=== PATIENT | male | born 1945 | race Caucasian/White ===

== ENCOUNTER → 2023-12-02 12:30 | Outpatient (REF) | payer MEDICARE, OTHER, SELFPAY | LOC: DHCBC HW 12:30 | PROVIDERS: ATTENDING PHYSICIAN Internal Medicine Cardiovascular Disease; FAMILY PHYSICIAN Family Medicine | DX: R06.02 Shortness of breath (principal) | CPT/HCPCS: 93306 ==

== ENCOUNTER → 2024-01-03 08:02 | Outpatient (REF) | payer MEDICARE, OTHER, SELFPAY | LOC: DHCBC/DCA 08:02 | PROVIDERS: ATTENDING PHYSICIAN Internal Medicine Cardiovascular Disease; FAMILY PHYSICIAN Family Medicine | DX: R06.02 Shortness of breath (principal) | CPT/HCPCS: 78452; 93017; A9500; J2785 ==

== ENCOUNTER → 2024-05-24 09:43 | Outpatient (REF) | payer MEDICARE, OTHER, SELFPAY | LOC: DHVS 09:43 | PROVIDERS: ATTENDING PHYSICIAN Surgery Vascular Surgery; FAMILY PHYSICIAN Family Medicine; REFERRING PHYSICIAN Internal Medicine Cardiovascular Disease | DX: I73.9 Peripheral vascular disease, unspecified (principal) | CPT/HCPCS: 93922; 93925 ==

== ENCOUNTER → 2024-09-10 13:29 | Outpatient (REF) | payer MEDICARE, OTHER, SELFPAY | LOC: RAD 13:29 | PROVIDERS: ATTENDING PHYSICIAN Student in an Organized Health Care Education/Training Program; FAMILY PHYSICIAN Family Medicine | DX: G45.9 Transient cerebral ischemic attack, unspecified (principal); I25.10 Atherosclerotic heart disease of native coronary artery without angina pectoris | CPT/HCPCS: 93880 ==

== ENCOUNTER → 2024-11-09 11:49 | Outpatient (REF) | payer MEDICARE, OTHER, SELFPAY | LOC: RAD 11:49 | PROVIDERS: ATTENDING PHYSICIAN Physician Assistant; FAMILY PHYSICIAN Family Medicine | DX: I65.22 Occlusion and stenosis of left carotid artery (principal) | CPT/HCPCS: 70496; 70498; Q9967 ==

== ENCOUNTER 2024-12-03 06:25 | Inpatient (IN) | payer MEDICARE, OTHER, SELFPAY ==
[2024-11-28 09:04] VITALS: BMI 22.1
[2024-11-28 09:33] LABS: % Basophils 0.5 % (0-2); % Eosinophils 3.9 % (0-6); % Immature Granulocytes 2.3 % (0-0.5); % Lymphocytes 12.9 % (20.5-51.1); % Monocytes 10.3 % (1.7-9.3); % Neutrophils 70.1 % (42.2-75.2); Absolute Eosinophils 0.2 10^3/uL (0-0.7); Absolute Immature Granulocytes 0.1 10^3/uL (0-0.05); Absolute Lymphocytes 0.8 10^3/uL (1.2-3.4); Absolute Monocytes 0.6 10^3/uL (0.1-0.6); Absolute Neutrophils 4.3 10^3/uL (1.4-6.5); Hematocrit 43.9 % (39.0-52.0); Hemoglobin 14.1 g/dL (13.0-18.0); Mean Corp Hgb Conc. 32.1 g/dL (33.0-37.0); Mean Corpuscular Hgb 29.7 pg (27.0-31.0); Mean Corpuscular Volume 92.6 fL (80.0-94.0); Mean Platelet Volume 8.8 fL (7.4-10.4); Nucleated Red Blood Cells % 0 % (-); Platelet Count 204 10^3/uL (130-400); Red Blood Cell Count 4.74 10^6/uL (4.70-6.10); Red Cell Dist. Width 13.3 % (11.5-14.5); White Blood Cell Count 6.2 10^3/uL (4.8-10.8)
[2024-11-28 09:46] LABS: APTT 31.3 Sec (23.4-35.0); INR 0.92; PT 12.8 Sec (11.4-14.6)
[2024-11-28 10:12] LABS: Blood Urea Nitrogen 32 mg/dl (9-20); Calcium 9.4 mg/dl (8.4-10.2); Carbon Dioxide 28 mmol/L (22-30); Chloride 101 mmol/L (98-107); Estimated Creatinine Clearance 44 ml/min; Glucose 98 mg/dl (70-99); Sodium 140 mmol/L (135-145); eGFR > 60.00
[2024-12-03] VITALS (15 sets, daily range): BP systolic 126–174; BP diastolic 48–71; BMI 21.8; BMI 22.1
[2024-12-03] MEDS: PERIDEX 0.12% ORAL RINSE 15 ML PO (07:08)
[2024-12-03] MEDS: BACTROBAN NASAL 1 GRAM NASAL (07:08)
[2024-12-03] MEDS: NSS 500 IV (07:09)
--- NOTE | 2024-12-03 07:10 | W.SUR.PREOP ---
Pre-Operative Surgical Note
-
I have examined this patient prior to the performance of the scheduled procedure.
The patient's condition is unchanged from the time of the current History and
Physical and the patient is able to undergo the scheduled procedure.
--- NOTE | 2024-12-03 09:27 | W.SUR.POST ---
Surgical Immediate Post Op
Note
Pre Op Diagnosis: Carotid stenosis
Post Op Diagnosis: Same
Procedure Performed: Left carotid endarterectomy with bovine pericardial patch angioplasty and EEG monitoring
Primary Surgeon: Savage
Assist: Thi BARBOZA
Anesthesia: General
Estimated Blood Loss: 15 cc
Fluids: See anesthesia flowsheet
Drains/Shunts: None
Specimens/Cultures: Left carotid plaque
Doppler/Duplex/Angio (Y/N): Yes
Complications: None
Operative Findings: Woke from anesthesia moving all extremities
--- NOTE | 2024-12-03 09:43 | OR.RPT ---
Operative Report
Operative Report
PROCEDURE DATE: 12/03/2024
Preoperative diagnosis: Critical left carotid artery stenosis, asymptomatic.
Postoperative diagnosis: Same
Procedure: Left carotid endarterectomy with bovine pericardial patch angioplasty and intraoperative EEG/SSEP monitoring.
Surgeon: Savage
Bevel Mill Operator: MARCIN Ness, required for all aspects of procedure including assistance with traction/countertraction, following of suture line, assistance with closure.
Complications: None
Anesthesia: General
Indications for procedure:
Severe left carotid artery stenosis. History of remote right carotid endarterectomy. Mixed, somewhat concerning appearing plaque. Risk/benefits/alternatives of revascularization were fully discussed. Patient understood all wished to proceed.
Description of procedure:
Patient was identified brought to the operating room placed on the table in supine position. After the adequate administration of anesthesia and perioperative antibiotics the was prepped and draped in the standard surgical fashion. A standard
preoperative timeout was undertaken and everybody was in agreement the plan. A standard longitudinal incision was made in the left neck that was carried through the skin subcutaneous tissue. Note, the incision was intentionally made slightly more
generously given finding on CT scan of extensive common carotid artery plaque and disease suggesting that proximal endpoint would have to be more proximal. Using the electrocautery dissection was carried through the platysma muscle layer and then
alongside the anterior medial border of the sternocleidomastoid muscle. Then using a combination of sharp dissection with the Metzenbaum scissors and electrocautery I dissected along the anterior medial border of the internal jugular vein. The
common facial vein branch was ligated between silk ties and then divided. I then deepened my retraction. The common carotid artery was identified and carefully dissected away from the surrounding structures take great care to avoid any injury to
the structures. There was definitively plaque in the common carotid artery. I dissected it down below using a retractor to get fairly low close to the base of the neck. There was plaque throughout but the plaque became much less prominent and
only mainly on the lateral wall. Therefore it was collapsible down the lower and I circumferentially dissected here. A vessel loop was passed around it which was double looped, but not yet tightened. Note the vagus nerve was clearly visualized
and protected from harm's way. I then continued my dissection up the common carotid artery to the bulb staying only on the anterior surface of the carotid artery. Then I carried the dissection up to the internal carotid artery and then to the
distal internal carotid artery. I identified where it was soft and carefully circumferentially dissected the internal carotid artery with minimal mobilization and passed a vessel loop around it. Note the hypoglossal nerve was not visualized in our
field and felt to be further cephalad. The patient was given an appropriate dose of heparin 6500 units. Next I dissected the anterior surface of the external carotid artery and superior thyroid branches. The superior thyroid branch itself was far
enough cephalad that I was able to dissect circumferentially the external carotid artery proximal to the origin of this branch and passed a vessel loop around the external carotid artery. This vessel loop was double looped but not yet tightened.
After 3 minutes of heparin circulation time and confirmation of optimization of the blood pressure with my anesthesiology colleagues, I clamped the distal internal carotid artery where it was soft. There was no immediate EEG or SSEP changes. After
1 minute of test clamp time there was no changes noted. Therefore at this point, the vessel loop on the external carotid artery was tightened and the common carotid artery was clamped where it was soft well proximally. An arteriotomy was made on
the internal carotid artery about 1cm beyond the origin (where it was soft) with an 11 blade and extended using a Del Angel scissor retrograde onto the common carotid artery. Due to the extent of common carotid artery plaque, I did extend the
arteriotomy well proximal on the common carotid artery at least a length of about 5 cm to 6 cm.. The plaque was mixed with some hardened calcification or exteriorly, but the central portion of the the plaque especially at the bulb/proximal internal
carotid artery was friable/soft as noted on CT scan. A [place] was then used to endarterectomized the plaque. An endarterectomy plane was created, and the plaque was then endarterectomized. Distally I feathered the plaque out to a nice clean
endpoint in the distal internal carotid artery. Next I endarterectomized the intima back all the way to the extent of the proximal arteriotomy on the common carotid artery. There was a little residual intimal thickening there, but I was able to
cut the intima flush. Slightly friable plaque debris was removed at the proximal endpoint using fine forceps meticulously. I then grasped the plaque and everted plaque out of the origin of the external carotid artery. The plaque was then sent off
for specimen. The origin of the external carotid artery was noted to be nicely free of any plaque debris. Proximal and distal endpoints were then carefully inspected. Any fine debris was removed with fine forceps, and the intima was noted to be
nicely adherent proximally and distally. Due to slight residual thickening or plaque in the proximal endpoint, I placed three 6-0 Prolene tacking sutures. Next any fine debris were removed throughout the endarterectomy bed with fine forceps. I
then flushed heparinized saline. I was very satisfied. Then, I used a bovine pericardial patch to sew a patch angioplasty with a running 5-0 Prolene suture. Prior to completing and tying down my suture line, I backbled sequentially each branch
and reclamped each branch prior to unclamping the next branch. I then irrigated with heparinized saline. Then I completed and tied down my suture line. We then restored flow in the common carotid and external carotid arteries. Finally, we
released flow in the internal carotid artery. There was excellent pulsatile flow in all 3 vessels. There was an excellent Doppler signal in the internal carotid artery distal to the patch with a good normal low resistance Doppler signal. There
was a good Doppler signal in the external carotid artery as well. A single 6-0 Prolene [id number] sutures were placed along any bleeding points along the suture line. Protamine was given to reverse the heparin. Hemostasis was completely
achieved. We then irrigated and confirmed full hemostasis. We then closed in layers with 2-0 Vicryl layer to reapproximate the sternocleidomastoid muscle, followed by 3-0 Vicryl platysma muscle running layer, followed by 4 Monocryl subcuticular
stitch. Dermabond was applied. The patient tolerated procedure well. He awoke moving all extremities to command with tongue in the midline.
[2024-12-03] MEDS: CARDENE 200 IV (10:19)
[2024-12-03 10:23] LABS: Hematocrit 35.8 % (39.0-52.0); Hemoglobin 11.8 g/dL (13.0-18.0); INR 1.07; Mean Corpuscular Hgb 30.6 pg (27.0-31.0); Mean Platelet Volume 9.1 fL (7.4-10.4); PT 14.2 Sec (11.4-14.6); Platelet Count 151 10^3/uL (130-400); Red Blood Cell Count 3.85 10^6/uL (4.70-6.10); Red Cell Dist. Width 13.3 % (11.5-14.5)
[2024-12-03 10:24] LABS: APTT 31.6 Sec (23.4-35.0)
[2024-12-03 10:32] LABS: Blood Urea Nitrogen 26 mg/dl (9-20); Calcium 7.7 mg/dl (8.4-10.2); Carbon Dioxide 23 mmol/L (22-30); Chloride 111 mmol/L (98-107); Estimated Creatinine Clearance 53 ml/min; Glucose 107 mg/dl (70-99); Potassium 3.9 mmol/L (3.5-5.1); Sodium 139 mmol/L (135-145); eGFR > 60.00
[2024-12-03] MEDS: NSS 1000 IV ×2 (11:16→23:43)
[2024-12-03] MEDS: ROXICODONE 5 MG PO ×2 (11:31→16:30)
--- NOTE | 2024-12-03 11:52 | PTCARENOTE ---
Rec'd patient from PACU. Patient alert and oriented. Neuro check WNL. MAEx4. Smile symmetrical; tongue midline. Left neck incision site intact; approximated with surgical adhesive. NSR on tele. Right radial chel leveled and zeroed. Cardene infusing
for SBP 100-165. IVFs initiated. Call ross within reach.
--- NOTE | 2024-12-03 12:53 | PTCARENOTE ---
Patient tolerating liquids. Diet advanced to cholesterol lowering diet per order.
--- NOTE | 2024-12-03 13:47 | CON.INTV ---
Consultation
Consultation Request
Date/Time Consultation Requested: 12/03/24
Date/Time Consultation Performed: 12/03/24
Performing Provider: Octavio
Reason for Consultation: ICU
Medical History
-
History of Present Illness:
Patient is an 79-year-old male with history of COPD, current smoker, PAD, CAD presenting for elective carotid intervention. He has history of bilateral carotid disease, underwent previous right sided CEA. Underwent left-sided CEA today 12/03/2024
and postoperatively admitted to ICU for further observation. Tolerated procedure well without complications. Denies any current pain.
Past Medical History
Past Medical History: Other (see list below)
Social History
Tobacco: Smoker
Alcohol: None
Drug: None
Family History
Family History: Reviewed & Not Pertinent
Allergies / Home Medications
Allergies
Allergy/AdvReac Type Severity Reaction Status Date / Time
lisinopril Allergy Unknown Unknown Verified 12/03/24 07:01
losartan Allergy Unknown Unknown Verified 12/03/24 07:01
spironolactone Allergy Unknown Unknown Verified 12/03/24 07:01
Tetanus Vaccines and Toxoid Allergy Local Verified 12/03/24 07:01
Swelling,
HTN
Anticoagulants Allergy 'Bleeding' Uncoded 12/03/24 07:01
Home Medications
�Medication �Instructions �Recorded �Confirmed �Last Taken �Type
acetaminophen 500 mg tablet 500 mg PO Q6H PRN pain 09/15/23 11/26/24 09/21/23 22:00 History
albuterol sulfate 90 mcg/actuation 2 puff inhalation PRN PRN SOB, 09/15/23 11/26/24 3 Months Ago History
aerosol inhaler Wheezes ~06/23/23
ascorbic acid (vitamin C) 1,000 mg 1 g PO QPM 09/15/23 12/03/24 12/02/24 06:00 History
tablet (Vitamin C)
aspirin 81 mg tablet,delayed 81 mg PO HS 09/15/23 12/03/24 12/02/24 06:00 History
release
calcium 600 mg (as 1 tab PO DAILY 09/15/23 12/03/24 12/02/24 20:00 History
carbonate)-vitamin D3 5 mcg (200
unit) tablet
carvedilol 12.5 mg tablet 12.5 mg PO BID 09/15/23 12/03/24 12/03/24 04:30 History
loratadine 10 mg tablet (Claritin) 10 mg PO QPM PRN allergy 09/15/23 11/26/24 09/21/23 22:00 History
lovastatin 40 mg tablet 40 mg PO BID 09/15/23 12/03/24 12/03/24 04:30 History
multivitamin 1 tab PO DAILY 09/15/23 12/03/24 12/02/24 06:00 History
omega 3-dzb-ysm-fish oil 1,000 mg 1 cap PO QPM 09/15/23 12/03/24 12/02/24 22:00 History
(120 mg-180 mg) capsule (Fish Oil)
hydrochlorothiazide 12.5 mg tablet 12.5 mg PO DAILY 11/26/24 12/03/24 12/02/24 06:00 History
umeclidinium 62.5 mcg-vilanterol 1 inh inhalation DAILY 11/26/24 11/26/24 Unknown History
25 mcg/actuation powdr for
inhalation (Anoro Ellipta)
Review of Systems
-
History Source: Patient
All other systems: Negative unless noted
Vitals / Labs / Diagnostic Testing
Vital Signs
Temp Pulse Resp BP Pulse Ox
97.5 F 76 17 126/57 94
12/03/24 11:23 12/03/24 13:30 12/03/24 13:30 12/03/24 11:00 12/03/24 13:15
Lab Data
12/03/24 10:02
12/03/24 10:02
Laboratory Results
12/03/24
10:02
PT 14.2
INR 1.07
APTT 31.6
Diagnostic Testing:
Physical Exam
-
HEENT: Normocephalic, Anicteric and Moist Mucous Membranes
Cardiovascular: S1/S2 and Regular Rhythm
Respiratory: Clear and Non-Labored Respirations
GI: Soft, Non Distended and Non Tender
Neurology: Awake, Alert, Oriented and No Motor Deficits
Skin: Warm, Dry and Good Color
General: Comfortable and Other (NAD)
Assessment
-
Patient is an 79-year-old male with history of COPD, current smoker, PAD, CAD presenting for elective carotid intervention. He has history of bilateral carotid disease, underwent previous right sided CEA. Underwent left-sided CEA today 12/03/2024
and postoperatively admitted to ICU for further observation.
Left carotid stenosis s/p L CEA 12/03/24
Post op anemia, mild
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
s/p Right CEA
HTN
Dyslipidemia
CAD
Cardiomyopathy
Hiatal hernia
PAD
H/o colon polyps
Prostate cancer 08/2020 s/p biopsy
DVT
2 hernia repairs
T&A
Aortoiliac stent 2004 @ [facility]
Current smoker
COPD/emphysema, followed at [facility], no PFTs for review
Plan
Patient is s/p L CEA by vascular surgery service, POD #0
Continue observation following procedure
Follow neurovascular checks per protocol
Follow BP monitoring and parameters as set by primary team
Cardiac history noted
Monitor on telemetry
Pain control per protocol
RASS goal 0
Prior history of pulmonary disease, includes COPD/emphysema
Followed previously by [facility], no PFTs for review
Current smoker, cut down to 1/4 PPD, has declined NRT
We discussed smoking cecssation
CXR reviewed indicating no acute disease
Encouraged IS
He feels his OP regiment is not enough, SOB now
Will add advair and spiriva, to continue as OP if this is preferred
Diet advancement per protocol
Aspiration precautions
GI prophylaxis if indicated for stress ulcer prevention in the critically ill
Creat at baseline, follow UO
Critical I/Os
Void trials
Replete electrolytes as needed
No signs/symptoms suspicious for infectious etiology at this time
Will observe off antibiotics for now
Follow temperatures/CBC
Hb and platelets postoperatively stable
DVT prophylaxis recommended if not contraindicated based on procedural history -- heparin SQ and mechanical SCDs
Encouraged OOB/PT/OT/ambulation once cleared by surgical team
Outpatient pulmonary FU recommended, we will add our info into chart
Can follow up at our office with PFTs, we will transfer records from [facility]
We will follow
Diagnostic Data
Chest X-Ray: 11/28/24- There is flattening of the diaphragm indicating chronic obstructive pulmonary disease. There are no superimposed acute pleural or parenchymal abnormalities.
CT Scan: AP 08/16/23- LUNGS BASES: Moderate size hiatal hernia. Emphysematous changes within the lung bases.
Echo: 12/02/23- Normal left ventricular chamber size with low-normal systolic function. Estimated left ventricular ejection fraction is 50-55% Mild to moderate tricuspid regurgitation. Mild mitral regurgitation. Pulmonary hypertension with estimated
PA pressure 50mmHg. Compared to the previous report 06/24/2020 the estimated PA pressure has increased. Previously estimated at 32 mmHg
PFT's:
Reports and relevant images were personally reviewed.
Critical Care time 50 mins -- this includes review of history, physical exam, medications, hemodynamic/O2 parameters, laboratory data, imaging and discussions with care team, pharmacy, nursing and patient.
--- NOTE | 2024-12-03 14:39 | PTCARENOTE ---
Cardene drip weaned off. VSS. Tolerated eating lunch. Dr. Wan at bedside.
--- NOTE | 2024-12-03 16:29 | PTCARENOTE ---
No changes in assessment. VSS. Pain controlled with PRN Roxicodone.
[2024-12-03] MEDS: VITAMIN C 500 MG PO (17:39)
[2024-12-03] MEDS: COREG 12.5 MG PO (19:01)
[2024-12-03] MEDS: TYLENOL 650 MG PO (19:07)
--- NOTE | 2024-12-03 21:20 | PTCARENOTE ---
Pt received start of shift, HR SR. AAOx4. Neuro WNL. Full strength in all extremities. Pupils round, reactive b/l. Smile symmetrical. L neck incision site intact, surgical adhesive present. R radial a-line zeroed. IVF infusing 80mL/hr as ordered.
PRN pain management - see DEC.
Pt refusing atorvastatin. Pt states he has adverse reactions to it such as facial flushing and increased BP, which is why he currently takes Lovastatin. Notified CLINIC SCHEDULER Cristino Reaves, atorvastatin placed on hold. When talking about plan to wean NC
oxygen and using inhalers to aid in the process, pt states he will refuse any inhaler. RT at bedside. Further education provided, pt continuing to refuse. Currently 1L NC 95%.
[2024-12-03] MEDS: ASPIR LOW (ENTERIC COATED) 81 MG PO (22:21)
[2024-12-04] VITALS (11 sets, daily range): BP systolic 117–180; BP diastolic 49–109; BMI 22.2
--- NOTE | 2024-12-04 00:37 | PTCARENOTE ---
Pt SBP up to 180 arterial, correlating w/ BP cuff. Cardene gtt started back on pt according to order. Neuro status unchanged from previous assessment. Pt voiding in urinal. L neck incision intact.
[2024-12-04 05:15] LABS: Blood Urea Nitrogen 22 mg/dl (9-20); Calcium 7.4 mg/dl (8.4-10.2); Carbon Dioxide 24 mmol/L (22-30); Chloride 109 mmol/L (98-107); Estimated Creatinine Clearance 60 ml/min; Glucose 127 mg/dl (70-99); Potassium 4.1 mmol/L (3.5-5.1); Sodium 137 mmol/L (135-145); eGFR > 60.00
[2024-12-04 05:19] LABS: APTT 32.3 Sec (23.4-35.0); INR 1.07; PT 14.2 Sec (11.4-14.6)
--- NOTE | 2024-12-04 05:55 | PTCARENOTE ---
Sergioene gtt off at 0300. Pt maintaining SBP goal range. Pt currently still on 1L NC, 92-96%. Neuro unchanged from previous assessment. Incision site intact. Reviewed plan of care w/ pt, pt agreeable.
[2024-12-04 06:14] LABS: Hematocrit 37.1 % (39.0-52.0); Hemoglobin 12.2 g/dL (13.0-18.0); Mean Corp Hgb Conc. 32.9 g/dL (33.0-37.0); Mean Corpuscular Hgb 30.4 pg (27.0-31.0); Mean Corpuscular Volume 92.5 fL (80.0-94.0); Mean Platelet Volume 9.2 fL (7.4-10.4); Platelet Count 182 10^3/uL (130-400); Red Blood Cell Count 4.01 10^6/uL (4.70-6.10); Red Cell Dist. Width 13.2 % (11.5-14.5); White Blood Cell Count 7.8 10^3/uL (4.8-10.8)
--- NOTE | 2024-12-04 07:15 | W.PN.INTV ---
Today's Communication / Plan
Recommendations
Doing well postoperatively, stable on RA
No complaints, tolerating inhalers
We will arrange FU as OP, reviewed plan
Discharge planning otherwise per team
Assessment
-
Patient is an 79-year-old male with history of COPD, current smoker, PAD, CAD presenting for elective carotid intervention. He has history of bilateral carotid disease, underwent previous right sided CEA. Underwent left-sided CEA today 12/03/2024
and postoperatively admitted to ICU for further observation.
Left carotid stenosis s/p L CEA 12/03/24
Post op anemia, mild
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
s/p Right CEA
HTN
Dyslipidemia
CAD
Cardiomyopathy
Hiatal hernia
PAD
H/o colon polyps
Prostate cancer 08/2020 s/p biopsy
DVT
2 hernia repairs
T&A
Aortoiliac stent 2004 @ [facility]
Current smoker
COPD/emphysema, followed at [facility], no PFTs for review
Plan
Patient is s/p L CEA by vascular surgery service, POD #1
Continue observation following procedure
Follow neurovascular checks per protocol
Follow BP monitoring and parameters as set by primary team
Cardiac history noted
Monitor on telemetry
Pain control per protocol
RASS goal 0
Prior history of pulmonary disease, includes COPD/emphysema
Followed previously by [facility], no PFTs for review
Current smoker, cut down to 1/4 PPD, has declined NRT
We discussed smoking cecssation
CXR reviewed indicating no acute disease
Encouraged IS
He feels his OP regiment is not enough, SOB now
Continue advair and spiriva, to continue as OP if this is preferred
Diet advancement per protocol
Aspiration precautions
GI prophylaxis if indicated for stress ulcer prevention in the critically ill
Creat at baseline, follow UO
Critical I/Os
Void trials
Replete electrolytes as needed
No signs/symptoms suspicious for infectious etiology at this time
Will observe off antibiotics for now
Follow temperatures/CBC
Hb and platelets postoperatively stable
DVT prophylaxis recommended if not contraindicated based on procedural history -- heparin SQ and mechanical SCDs
Encouraged OOB/PT/OT/ambulation once cleared by surgical team
Outpatient pulmonary FU recommended, we will add our info into chart
Can follow up at our office with PFTs, we will transfer records from [facility]
Discharge planning per team
Diagnostic Data
Chest X-Ray: 11/28/24- There is flattening of the diaphragm indicating chronic obstructive pulmonary disease. There are no superimposed acute pleural or parenchymal abnormalities.
CT Scan: AP 08/16/23- LUNGS BASES: Moderate size hiatal hernia. Emphysematous changes within the lung bases.
Echo: 12/02/23- Normal left ventricular chamber size with low-normal systolic function. Estimated left ventricular ejection fraction is 50-55% Mild to moderate tricuspid regurgitation. Mild mitral regurgitation. Pulmonary hypertension with estimated
PA pressure 50mmHg. Compared to the previous report 06/24/2020 the estimated PA pressure has increased. Previously estimated at 32 mmHg
PFT's:
Reports and relevant images were personally reviewed.
Critical Care time 31 mins -- this includes review of history, physical exam, medications, hemodynamic/O2 parameters, laboratory data, imaging and discussions with care team, pharmacy, nursing and patient.
Subjective Dataa
Subjective Data
Date of Service:
Date of Service: December 04, 2024
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
Subjective:
Doing well, no complaints
Stable on RA
Objective Data
Data Reviewed
Vital Signs / I&O / Oxygen:
Vital Signs
Temp Pulse Resp BP Pulse Ox
97.8 F 65 24 145/109 98
12/03/24 23:30 12/04/24 06:45 12/04/24 06:45 12/04/24 06:00 12/04/24 06:45
Intake and Output
12/03/24 12/04/24 12/05/24
06:59 06:59 06:59
Intake Total 2622.5 / 2622.5
Output Total 725 / 725
Balance 1897.5 / 1897.5
SaO2 98
Nasal Cannula flow liters per 1
minute
Physical Exam
General: Comfortable and Other (NAD)
HEENT: Normocephalic, Anicteric and Moist Mucous Membranes
Cardiovascular: S1-S2 and Regular Rhythm
Respiratory: Clear and Non-Labored Respirations
GI: Soft, Non Distended and Non Tender
Neurology: Awake, Alert, Oriented and No Motor Deficits
Skin: Warm, Dry and Good Color
Labs/Micro/Reports
Lab Data
12/04/24 04:25
12/04/24 04:25
Laboratory Results
12/03/24 12/04/24
10:02 04:25
PT 14.2 14.2
INR 1.07 1.07
APTT 31.6 32.3
--- NOTE | 2024-12-04 08:02 | W.PN.VS ---
Today's Communication / Plan
-
Seen and assessed with Dr. Mason
Assessment/Plan
-
POD 1 left CEA
Plan:
-DC A-line
-DC IV fluids
-P.o. medications
-Increase diet
-Out of bed/ambulate
-Likely DC later today
Subjective Data
-
Date of Service: December 04, 2024
Patient seen at bedside this a.m. Patient offers no complaints at this time. Patient excited to get out of bed and go home. No events overnight.
Objective Data
-
Vital Signs
Temp Pulse Resp BP Pulse Ox
98.0 F 65 24 145/109 88
12/04/24 07:37 12/04/24 06:45 12/04/24 06:45 12/04/24 06:00 12/04/24 07:37
Intake and Output
12/03/24 12/04/24 12/05/24
06:59 06:59 06:59
Intake Total 2622.5 / 2622.5
Output Total 725 / 725
Balance 1897.5 / 1897.5
Intake:
Oral fluids 960 / 960
IV fluids (Total) 1662.5 / 1662.5
Cardene 62.5 / 62.5
Nss 1,000 ml @ 80 mls/hr IV . 1600 / 1600
[id number] ADRIAN Rx#:[id number]
Output:
Urine, Voided 725 / 725
Lab Results
12/04/24 04:25
12/04/24 04:25
Calcium 7.4 mg/dl (8.4-10.2) L 12/04/24 04:25
Physical Exam
-
AAOx3
No tachypnea on room air
No tachycardia
Neck site clean, dry, intact, soft, flat
Abdomen soft
Moves all extremities equally
Tongue midline
[2024-12-04] MEDS: COREG 12.5 MG PO (08:34)
[2024-12-04] MEDS: THERAGRAN 1 TABLET PO (08:35)
[2024-12-04] MEDS: OSCAL 500 + D 600 MG PO (08:35)
[2024-12-04] MEDS: ORETIC 12.5 MG PO (08:35)
--- NOTE | 2024-12-04 09:15 | PTCARENOTE ---
Received pt @ change of shift. Neuro check completed w off-going shift WNL- see flow sheet. Ox3, denies pain. MAEx4. Smile symmetrical; tongue midline. Left neck incision site intact; approximated with surgical adhesive. O2 removed; SpO2 92%
currently; occasional desaturation into mid 80's, pox self resolves back into 90's w use of IS. Cough/deep breathing exercise encouraged. R rad A-line removed; pressure held until bleeding ceased and clean dressing applied. Stand by assisted into
BR for AM hygiene and then into chair. Tolerating activity; remains in chair. Also tolerating meals. Pt. instructed on how to report care concerns and call ross w in reach.
--- NOTE | 2024-12-04 10:26 | CM ---
CM following re: discharge planning.
Reviewed pt's chart, met with pt and pt's spouse at bedside.
Pt is an 79 year old male, admitted with primary dx of POD 1 left CEA. per Vascular Surgery, pt most likely will be discharged home this afternoon. Pt is aware, expressed his agreement and great desire to return back home today. IMM reviewed, placed
on chart, pt has a copy.
Pt reports he lives with spouse 2SH, 2 steps to enter, has 2 supportive children. 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 No VN or SNF history.
PCP: Joshua Hidalgo
Pharmacy: [facility].
D/C plan: Home no needs. Spouse to transport.
--- NOTE | 2024-12-04 10:57 | W.DS.TRANS ---
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
-
Discharge Instructions:
Discharge Diagnosis/Procedures Left carotid endarterectomy
Diet As tolerated
Activity No strenuous activity
Driving Restrictions Not until seen by your Dr
Bathing Restrictions OK to Shower
Instructions:
Stand-Alone Forms: DC Instr - Vascular OR
Changes to Home Medications: No
Discharge Medications:
DC Medications w/original date entered in [facility]
acetaminophen 500 mg tablet 500 mg PO Q6H PRN pain 09/15/23
albuterol sulfate 90 mcg/actuation aerosol inhaler 2 puff inhalation PRN PRN SOB, Wheezes 09/15/23
ascorbic acid (vitamin C) 1,000 mg tablet (Vitamin C) 1 g PO QPM 09/15/23
aspirin 81 mg tablet,delayed release 81 mg PO HS 09/15/23
calcium 600 mg (as carbonate)-vitamin D3 5 mcg (200 unit) tablet 1 tab PO DAILY 09/15/23
carvedilol 12.5 mg tablet 12.5 mg PO BID 09/15/23
loratadine 10 mg tablet (Claritin) 10 mg PO QPM PRN allergy 09/15/23
lovastatin 40 mg tablet 40 mg PO BID 09/15/23
multivitamin 1 tab PO DAILY 09/15/23
omega [id number]-fish oil 1,000 mg (120 mg-180 mg) capsule (Fish Oil) 1 cap PO QPM 09/15/23
hydrochlorothiazide 12.5 mg tablet 12.5 mg PO DAILY 11/26/24
umeclidinium 62.5 mcg-vilanterol 25 mcg/actuation powdr for inhalation (Anoro Ellipta) 1 inh inhalation DAILY 11/26/24
Home Medication Changes
Pending Results: No
== END 2024-12-04 12:07 | disposition home or self-care (01) | DRG 38 ==
LOC: ICU 06:25
PROVIDERS: Nurse Practitioner Acute Care; ADMITTING PHYSICIAN Surgery Vascular Surgery; CONSULT PHYSICIAN Internal Medicine; PRIMARYCARE PHYSICIAN Family Medicine
PROC: 03UL0KZ Supplement Left Internal Carotid Artery with Nonautologous Tissue Substitute, Open Approach (ICD-10-PCS; 2024-12-03)
PROC: 03CL0ZZ Extirpation of Matter from Left Internal Carotid Artery, Open Approach (ICD-10-PCS; 2024-12-03)
DX: I65.22 Occlusion and stenosis of left carotid artery (principal); I42.9 Cardiomyopathy, unspecified; I82.511 Chronic embolism and thrombosis of right femoral vein; E78.5 Hyperlipidemia, unspecified; I25.10 Atherosclerotic heart disease of native coronary artery without angina pectoris; I10 Essential (primary) hypertension; I73.9 Peripheral vascular disease, unspecified; J43.9 Emphysema, unspecified; J44.9 Chronic obstructive pulmonary disease, unspecified; I44.4 Left anterior fascicular block; C61 Malignant neoplasm of prostate; D64.9 Anemia, unspecified; F17.210 Nicotine dependence, cigarettes, uncomplicated; Z79.899 Other long term (current) drug therapy; Z79.82 Long term (current) use of aspirin; Z95.828 Presence of other vascular implants and grafts; Z86.73 Personal history of transient ischemic attack (TIA), and cerebral infarction without residual deficits; Z79.51 Long term (current) use of inhaled steroids; Z88.7 Allergy status to serum and vaccine; Z88.8 Allergy status to other drugs, medicaments and biological substances
CPT/HCPCS: 88304; 88311; 35301; 36415; 71046; 80048; 85025; 85027; 85610; 85730; 86850; 86900; 86901; 93005; 95938; 95941; 95955; 99406

== ENCOUNTER → 2025-01-07 12:49 | Outpatient (REF) | payer MEDICARE, OTHER, SELFPAY | LOC: RAD 12:49 | PROVIDERS: ATTENDING PHYSICIAN Physician Assistant; FAMILY PHYSICIAN Family Medicine | DX: I65.22 Occlusion and stenosis of left carotid artery (principal) | CPT/HCPCS: 93880 ==

== ENCOUNTER → 2025-01-16 08:07 | Outpatient (REF) | payer MEDICARE, OTHER, SELFPAY | LOC: RAD 08:07 | PROVIDERS: ATTENDING PHYSICIAN Surgery Vascular Surgery; FAMILY PHYSICIAN Family Medicine; REFERRING PHYSICIAN Physician Assistant | DX: I73.9 Peripheral vascular disease, unspecified (principal) | CPT/HCPCS: 93922; 93925; 93978 ==

== ENCOUNTER → 2025-07-30 08:14 | Outpatient (REF) | payer MEDICARE, OTHER, SELFPAY | LOC: RAD 08:14 | PROVIDERS: ATTENDING PHYSICIAN Surgery Vascular Surgery; FAMILY PHYSICIAN Family Medicine | DX: I65.22 Occlusion and stenosis of left carotid artery (principal); I73.9 Peripheral vascular disease, unspecified | CPT/HCPCS: 93880; 93922; 93978 ==